=== PATIENT | female | born 1990 | race Caucasian/White ===

== ENCOUNTER 2017-04-20 10:43 | Emergency (ER) | payer BC | END 2017-04-21 17:41 | disposition home or self-care (01) | LOC: E/R 04-21 17:41 | DX: K13.79 Other lesions of oral mucosa (principal) | CPT/HCPCS: 99283 ==

== ENCOUNTER 2017-05-24 09:54 | Emergency (ER) | payer BC | END 2017-05-24 16:25 | disposition home or self-care (01) | LOC: FTE 09:54 | DX: R06.02 Shortness of breath (principal); F17.210 Nicotine dependence, cigarettes, uncomplicated; Z77.120 Contact with and (suspected) exposure to mold (toxic) | CPT/HCPCS: 99283 ==

== ENCOUNTER 2017-06-16 11:36 | Emergency (ER) | payer BC | END 2017-06-16 13:25 | disposition home or self-care (01) | LOC: FTE 11:36 | DX: Z77.120 Contact with and (suspected) exposure to mold (toxic) (principal) | CPT/HCPCS: 99282 ==

== ENCOUNTER 2017-06-23 17:58 | Emergency (ER) | payer SELFPAY, BC | END 2017-06-23 18:28 | disposition left against medical advice (07) | LOC: FTE 17:58 | DX: Z53.21 Procedure and treatment not carried out due to patient leaving prior to being seen by health care provider (principal) ==

== ENCOUNTER 2017-06-24 11:15 | Emergency (ER) | payer BC ==
[2017-06-24] MEDS: LIDOCAINE 1% (MDV) 10 ML INJ INJ (14:16)
[2017-06-24] MEDS: IBUPROFEN 600 MG TAB PO (14:56)
== END 2017-06-24 14:58 | disposition home or self-care (01) ==
LOC: FTE 11:15
DX: L02.415 Cutaneous abscess of right lower limb (principal)
CPT/HCPCS: 10061; 99283-25

== ENCOUNTER 2018-07-24 11:35 | Emergency (ER) | payer OTHER, BC ==
[2018-07-24] MEDS: FLUORESCEIN STRIP LEFT EYE (12:54)
[2018-07-24] MEDS: TETRACAINE 0.5% 4 ML OPH LEFT EYE (13:06)
== END 2018-07-24 14:50 | disposition home or self-care (01) ==
LOC: FTE 11:35
DX: S05.92XA Unspecified injury of left eye and orbit, initial encounter (principal); W25.XXXA Contact with sharp glass, initial encounter; Y92.9 Unspecified place or not applicable
CPT/HCPCS: 76536; 99284-25